=== PATIENT | male | born 1950 | race Caucasian/White ===

== ENCOUNTER 2019-03-04 07:04 | Day surgery (SDC) | payer MEDICARE, BC ==
[2019-03-04] MEDS ORDERED: fentaNYL 100 MCG/2 ML SDV ONE (07:58)
[2019-03-04] MEDS ORDERED: Propofol 200 MG/20 ML SDV ONE (07:59)
[2019-03-04] MEDS ORDERED: Midazolam 1 MG/ML 2 ML SDV ONE (07:59)
[2019-03-04] MEDS ORDERED: Lactated Ringers 1,000 ML IV SCH (08:00)
[2019-03-04] MEDS ORDERED: Atropine 0.4 MG/ML SDV ONE (08:45)
--- NOTE | 2019-03-04 13:55 | OR ---
DATE OF PROCEDURE: 03/04/2019 PREOPERATIVE DIAGNOSIS: Colon cancer screening. POSTOPERATIVE DIAGNOSIS: Diverticulosis. PROCEDURE: Colonoscopy to the cecum. SURGEON: Oli Zuñiga MD ANESTHESIA: IV anesthesia with monitored anesthesia care. 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 This is his first colonoscopic exam. He is known to have diverticulosis. He had diverticulitis last August. I counseled him for the procedure, including risks and alternatives, and he gave his informed consent to proceed. DESCRIPTION OF PROCEDURE: The patient was placed in the left lateral decubitus position. IV anesthesia was administered by the Anesthesia Service. Time-out was held. A rectal exam was performed, which was unremarkable. The flexible video Olympus colonoscope was introduced through his anus, up his rectum and out his colon all the way to the cecum. En route, we saw multiple left-sided diverticula. There was no bleeding or inflammation associated with any of them. Once the cecum was reached, the scope was slowly withdrawn examining the mucosa throughout. No additional mucosal abnormalities were noted. The scope was retroflexed in the rectum with the distal rectum appearing unremarkable. The scope was straightened and removed. He tolerated the procedure well. Oli Zuñiga MD /[id number] MTDD
== END 2019-03-04 10:31 | disposition home or self-care (01) ==
LOC: JP.SDS 07:04
PROVIDERS: ATTEND Surgery
DX: Z12.11 Encounter for screening for malignant neoplasm of colon (principal); K57.30 Diverticulosis of large intestine without perforation or abscess without bleeding; E78.5 Hyperlipidemia, unspecified; M10.9 Gout, unspecified; Z88.8 Allergy status to other drugs, medicaments and biological substances; Z87.19 Personal history of other diseases of the digestive system
CPT/HCPCS: G0121; J0461; J2250; J2704; J3010; J7120